=== PATIENT | male | born 1955 | race Caucasian/White ===

== ENCOUNTER 2019-03-12 10:18 | Outpatient (CLI) | payer BC, SELFPAY ==
[2019-03-12 10:53] LABS: Abs Immature Grans 0.03 k/cumm (0.0-0.09); Absolute Basophil Count 0.02 k/cumm (0.0-0.2); Absolute Eosinophil Count 0.09 k/cumm (0.0-0.7); Absolute Lymphocyte Count 2.29 k/cumm (1.2-3.4); Absolute Monocyte Count 0.48 k/cumm (0.11-0.7); Absolute Neutrophil Count 4.35 k/cumm (1.2-6.7); Basophils % 0.3; Eosinophils % 1.2; HCT 41.3 % (40.0-50.0); HGB 14.1 g/dL (13.5-17.5); Immature Grans % 0.4; Lymphocytes % 31.5; Mean Corp. HGB Concentration 34.1 g/dL (32.0-36.0); Mean Corpuscular Hemoglobin 31.5 pg (27.0-33.0); Mean Corpuscular Volume 92.2 fL (80-95); Mean Platelet Volume 9.3 fL (8.0-11.0); Monocytes % 6.6; Platelet Count 272 x1000/uL (130-400); RBC 4.48 m/cumm (4.50-6.00); RBC Distribution Width 12.8 % (11.8-14.1); White Blood Cell Count 7.26 k/cumm (4.4-10.8)
[2019-03-12 12:02] LABS: Vitamin B12 455 pg/mL (193-986)
[2019-03-12 12:14] LABS: C-Reactive Protein 0.35 mg/dL (0.0-0.3)
[2019-03-12 22:41] LABS: Estradiol 28 pg/ml (0-40)
[2019-03-15 10:45] LABS: PSA, Screening 1.9 ng/ml (0-4.5)
[2019-03-15 12:48] LABS: Albumin 59.6 % (55.8-66.1); Comment SEE COMMENTS; Total Protein 7.1 g/dl (6.3-8.2)
== END 2019-03-12 10:38 ==
PROVIDERS: PCP Family Medicine; Visit Provider Family Medicine
DX: Z00.00 Encounter for general adult medical examination without abnormal findings (principal); M13.80 Other specified arthritis, unspecified site; I10 Essential (primary) hypertension; E53.8 Deficiency of other specified B group vitamins; D64.9 Anemia, unspecified; Z12.5 Encounter for screening for malignant neoplasm of prostate
CPT/HCPCS: 36415; 84153; 82607; 82670; 84165; 85025; 86140; 86320

== ENCOUNTER 2019-03-18 01:51 | Outpatient (CLI) | payer BC, SELFPAY ==
--- NOTE | 2019-03-18 13:00 | DI.NM_ITS ---
APPROVED REPORT Exam: Exercise Treadmill Patient Location: Out-Patient Room/Bed: Stress Nurse: Peggy Huff RN Baseline Rhythm: NSR Indications: Chest pain. Pt is a manual machinist. While at work he has been experiencing intermittent chest pains that will sometimes radiate up into his jaw and behind his eyes this is associated with cold s weats. He states the discomfort will last 5 to 10 minutes each time. He also has had chest pains that is waking him up at night, he has been taking antacids at these times and getting up out of the bed for the pain to subside. Pt reports smoking 3/4 pack a day of cigarettes for past 40 years. Medical History Medical History: HTN, Obesity Cardiac Medications: Aspirin. Hyzaar. MVI. Allergies: No known drug allergies Cardiac Risk Factors: HTN, Smoking Exercise History: Indeterminate Stress Test Details Test: Exercise stress testing was performed using a modified [place] protocol. Nuclear Acquisition: Stress Tc-99m/Stress Tc-99m 2 days Rest Isotope: Tc-99m Sestamibi. Dose: 12.1 Date: 03/18/2019 Injection Time: 1145 Stress Isotope: Tc-99m Sestamibi. Dose: 36.0 Date: 03/18/2019 Injection Time: 1430 HR Resting HR: 66 bpm Max Heart Rate (APMHR): 156 bpm Target HR (85% APMHR): 132 bpm Max HR Achieved: 146 bpm % of APMHR: 93 Recovery HR: 88 bpm HR response to stress: Normal HR response to stress BP Resting BP: 140/80 mmHg Max BP: 184/60 mmHg Recovery BP: 158/86 mmHg BP response to stress: Normal blood pressure response to stress. ECG Resting ECG: Sinus Rhythm Stress ECG: Sinus Tachycardia ST Change: No significant ST segment changes. Arrhythmia: None Recovery ECG: Sinus Rhythm Recovery ST Change: No significant ST segment changes Recovery Arrhythmia: None Clinical Reason for Termination: Dyspnea Stress Symptoms: Dyspnea, General Fatigue Highest Stage Achieved: Stage 2: 2.5 mph at 12% grade. Exercise capacity: 6.31 METs Stress ECG Conclusion 1. Patient showed moderate exercise tolerance 2. This represents a maximal effort study 3. EKG portion of study does not demonstrate any inducible ischemia 4. Imaging portion of study does not demonstrate any inducible ischemia 5. This represents a normal stress test. No prior study available for comparison.
== END 2019-03-18 02:11 ==
PROVIDERS: PCP Family Medicine; Visit Provider Family Medicine
DX: R07.89 Other chest pain (principal); I10 Essential (primary) hypertension; F17.210 Nicotine dependence, cigarettes, uncomplicated
CPT/HCPCS: 78452; 93017

== ENCOUNTER 2020-08-25 03:41 | Outpatient (CLI) | payer OTHER, MEDICARE, SELFPAY ==
[2020-08-25 13:22] LABS: Hemoglobin A1C 5.7 % (<5.7)
[2020-08-25 14:11] LABS: ALT 24 U/L (16-63); AST 15 U/L (15-37); Albumin 3.9 g/dL (3.4-5.0); Alkaline Phosphatase 75 U/L (46-116); Anion Gap 10.7 mmol/L (3-11); BUN 16 mg/dL (7-18); Bilirubin, Total 0.4 mg/dL (0.2-1.0); C-Reactive Protein 0.61 mg/dL (0.0-0.3); CO2 25.3 mmol/L (21.0-32.0); CREATININE 1.1 mg/dL (0.70-1.30); Chloride 105 mmol/L (98-107); Glucose 96 mg/dL (74-106); Potassium 3.9 mmol/L (3.5-5.1); Sodium 141 mmol/L (136-145); TSH (W/Ref FT4) 1.07 uIU/mL (0.36-3.74); Total Protein 7.2 g/dL (6.4-8.2)
[2020-08-25 16:21] LABS: ESR 4 mm/hr (<or=20)
[2020-08-25 22:04] LABS: PSA, Screening 1.1 ng/mL (0.0-4.5)
== END 2020-08-25 03:42 | disposition home or self-care (01) ==
PROVIDERS: PCP Family Medicine; Visit Provider Family Medicine
DX: I10 Essential (primary) hypertension (principal); R07.9 Chest pain, unspecified; M13.80 Other specified arthritis, unspecified site; Z12.5 Encounter for screening for malignant neoplasm of prostate; Z13.1 Encounter for screening for diabetes mellitus
CPT/HCPCS: 36415; 80053; 84153; 85652; 83036; 83735; 84443; 86140

== ENCOUNTER 2021-09-06 03:31 | Outpatient (CLI) | payer MEDICARE, SELFPAY ==
[2021-09-06 15:54] LABS: Hemoglobin A1C 5.7 % (<5.7)
[2021-09-06 16:05] LABS: HCT 43.8 % (40.0-50.0); HGB 14.8 g/dL (13.5-17.5); MCH 31.9 pg (27.0-33.0); MCHC 33.8 % (32.0-36.0); MCV 94.4 fL (80-95); MPV 9.7 fL (8.0-11.0); Platelet Count 228 10^3/uL (130-400); RBC 4.64 10^6/uL (4.36-5.78); RDW 12.2 % (11.8-14.1); RDW-SD 42.3 fL; WBC 8.72 10^3/uL (4.4-10.8)
[2021-09-06 16:28] LABS: ESR 3 mm/hr (0-20)
[2021-09-06 16:37] LABS: ALT 22 U/L (16-63); AST 17 U/L (15-37); Alkaline Phosphatase 78 U/L (46-116); Anion Gap 9.5 mmol/L (3-11); BUN 16 mg/dL (7-18); Bilirubin, Total 0.2 mg/dL (0.2-1.0); C-Reactive Protein 0.59 mg/dL (0.0-0.3); CO2 26.5 mmol/L (21.0-32.0); CREATININE 1.1 mg/dL (0.70-1.30); Calcium 8.7 mg/dL (8.5-10.1); Calculated LDL 74 mg/dL (<100); Chloride 105 mmol/L (98-107); Cholesterol 153 mg/dL (<200); Glucose 99 mg/dL (74-106); HDL Cholesterol 31 mg/dL (40-60); Potassium 3.9 mmol/L (3.5-5.1); Sodium 141 mmol/L (136-145); Total Protein 7.2 g/dL (6.4-8.2); Triglyceride 240 mg/dL (<150)
[2021-09-07 21:11] LABS: PSA, Screening 1.3 ng/mL (0.0-4.5)
== END 2021-09-06 03:32 | disposition home or self-care (01) ==
PROVIDERS: PCP Family Medicine; Visit Provider Family Medicine
DX: I10 Essential (primary) hypertension (principal); R73.03 Prediabetes; Z85.46 Personal history of malignant neoplasm of prostate; D64.9 Anemia, unspecified; R79.82 Elevated C-reactive protein (CRP); M79.10 Myalgia, unspecified site; Z12.5 Encounter for screening for malignant neoplasm of prostate
CPT/HCPCS: 36415; 80053; 80061; 84153; 85027; 85652; 83036; 86140

== ENCOUNTER → 2021-10-16 00:51 | Outpatient (CLI) | payer MEDICARE, SELFPAY ==
--- NOTE | 2021-10-16 08:00 | DI.US_ITS ---
Exam(s) US AAA SCREENING EXAM: US AAA SCREENING CLINICAL HISTORY: HTN, I10; FORMER SMOKER, QUIT > 1 YR, Z87.891 COMPARISON: US RIGHT EXTREMITY ULTRASOUND {[id number]} from 03/09/2015 FINDINGS: There is no evidence of abdominal aortic aneurysm maximum diameter of the abdominal aorta is 2.5 cent imeters, proximally. There is normal tapering distally. Both common iliac arteries are minimally pr ominent, measuring approximately 1.6 cm bilaterally. IMPRESSION: No evidence of abdominal aortic aneurysm. Mild arterial megaly of both partially visualized common iliac arteries. DATA REPOSITORY:
--- NOTE | 2021-10-16 14:00 | DI.US_ITS ---
APPROVED REPORT Exam: Exercise Treadmill Patient Location: Out-Patient Room/Bed: Stress Nurse: Sherri Graham RN Ordering Provider:FRANCISCO JAVIER RIZZO, Contact Number: [phone] BMI: 35.93 Baseline Rhythm: Sinus Rhythm Indications: CHEST PAIN, HYPERTENSION, FORMER SMOKER, QUIT > 1 YR Medical History Medical History: Anxiety, HTN, NIKOLE, Tobacco abuse Cardiac Medications: Losartan, Atenolol, Aspirin Allergies: No known drug allergies Cardiac Risk Factors: HTN, Smoking (current) Previous Cardiac Procedures: None Pretest Chest Pain Characteristics: None Exercise History: Sedentary Physical Disabilities: Arthritis in knee Lung Sounds: Diminished Heart Sounds: Regular Stress Test Details Test: Exercise stress testing was performed using a [place] protocol. Rest Stress HR Resting HR Supine: 65 bpm Max Heart Rate (APMHR): 153 bpm Resting HR Standin bpm Target HR (85% APMHR): 130 bpm Max HR Achieved: 138 bpm % of APMHR: 90 Recovery HR: 86 bpm HR response to stress: Normal HR response to stress Comment: Atenolol not held for test BP Resting BP Supine: 138/74 mmHg Resting BP Standin/74 mmHg Max BP: 194/82 mmHg Recovery BP: 148/60 mmHg BP response to stress: Normal blood pressure response to stress. ECG Resting ECG: Sinus Rhythm Ectopy: None Stress ECG: Sinus Tachycardia ST Change: No significant ST segment changes noted Arrhythmia: None Recovery ECG: Sinus Rhythm Recovery ST Change: Horizontal ST depression Lead(s): inferior leads Recovery ST Deviation: 1 mm Recovery Arrhythmia: None Clinical Reason for Termination: Fatigue, knee pain Stress Symptoms: Dyspnea Exercise duration: 6 min34 sec Highest Stage Reached: Stage 3: 3.4 mph at 14% grade. Exercise capacity: 7.91 METs [place] Treadmill Score: 6.5 Rate Pressure Product: [id number] Stress ECG Conclusion 1. Resting electrocardiogram was within normal limits 2. Patient exercised on the [place] protocol and completed a workload of 7.91 METS, stopping due to dys pnea and knee pain 3. Normal heart rate and blood pressure response to exercise. The patient achieved 90% of predicted heart rate for age 4. At peak exercise there was no electrocardiographic evidence of myocardial ischemia 5. There were no significant dysrhythmias 6. See stress echo report Mag[place] Treadmill Score is 6.5 which is Low risk. Stress Test Summary STAGE Time (mins) Speed (mph) Grade (%) HR BP SYMPTOMS METS Supine 65 138/74 Standing 67 142/74 1 3 1.7 10 102 142/88 4.6 2 6 2.5 12 128 7 1 min recovery 121 194/82 3 min recovery 94 178/68 6 min recovery 86 148/60 MPI Conclusion This is a stress echocardiogram The resting echocardiogram showed normal left ventricular function, EF approximately 60% Post exercise echocardiogram showed improved contractility of all segments, EF talib to greater than o r equal to 70% Left ventricular chamber size decreased There was no echocardiographic evidence of myocardial ischemia
== END ==
PROVIDERS: PCP Family Medicine; Visit Provider Family Medicine
DX: R07.89 Other chest pain (principal); Z87.891 Personal history of nicotine dependence; I10 Essential (primary) hypertension
CPT/HCPCS: 76706; 93306; 93350; 93017

== ENCOUNTER 2022-09-11 01:59 | Outpatient (CLI) | payer MEDICARE, SELFPAY ==
[2022-09-11 10:45] LABS: Hemoglobin A1C 5.6 % (<5.7)
[2022-09-11 11:31] LABS: ALT 23 U/L (16-63); AST 13 U/L (15-37); Albumin 3.9 g/dL (3.4-5.0); Alkaline Phosphatase 72 U/L (46-116); Anion Gap 5.9 mmol/L (3-11); BUN 21 mg/dL (7-18); Bilirubin, Total 0.3 mg/dL (0.2-1.0); CO2 29.1 mmol/L (21.0-32.0); CREATININE 1.1 mg/dL (0.70-1.30); Calcium 9.3 mg/dL (8.5-10.1); Chloride 106 mmol/L (98-107); Estimated GFR 73.12 (mL/min/1.73m2); Glucose 102 mg/dL (74-106); Potassium 3.9 mmol/L (3.5-5.1); Sodium 141 mmol/L (136-145); Total Protein 7.5 g/dL (6.4-8.2)
== END 2022-09-11 02:00 | disposition home or self-care (01) ==
LOC: LBO 01:59
PROVIDERS: PCP Family Medicine; Visit Provider Family Medicine
DX: I10 Essential (primary) hypertension (principal); R73.03 Prediabetes
CPT/HCPCS: 36415; 80053; 83036

== ENCOUNTER 2022-10-02 01:27 | Outpatient (CLI) | payer MEDICARE, SELFPAY ==
--- NOTE | 2022-10-02 08:00 | DI.US_ITS ---
Exam(s) US SOFT TISSUE HEAD OR NECK EXAM: US SOFT TISSUE HEAD OR NECK CLINICAL HISTORY: LT NECK PAIN, M54.2, EVAL FOR LYMPHADENOPATHY. TECHNIQUE: Ultrasound was performed using standard protocol. COMPARISON: No exams were available for comparison FINDINGS: Sonographic assessment utilizing grayscale and color Doppler imaging was performed and targeted to th e area of clinical concern. There are cervical lymph nodes seen bilaterally. The largest on the left measures 1.6 x 0.7 x 0.8 cm . The largest on the right measures 1.1 x 0.7 x 1.1 cm. The lymph nodes appear unremarkable sonogra phically. No suspicious cystic or solid neck masses are seen. IMPRESSION: 1. No suspicious cystic or solid neck masses are seen sonographically. 2. Sonographically unremarkable bilateral lymph nodes. The largest is on the left and measures 1.6 x 0.7 x 0.8 cm. DATA REPOSITORY:
--- NOTE | 2022-10-02 08:30 | DI.US_ITS ---
Exam(s) US CAROTID EXAM: US CAROTID CLINICAL HISTORY: LT NECK PAIN, M54.2. TECHNIQUE: Ultrasound carotids performed using grayscale, color-flow, and spectral Doppler imaging. COMPARISON: No exams were available for comparison FINDINGS: RIGHT CAROTID ARTERY: Plaque: Mild calcific plaque in the carotid bulb and proximal right ICA. Velocity elevation: None. LEFT CAROTID ARTERY: Plaque: Calcific plaque is seen in the carotid bulb, common carotid artery and proximal ICA. Velocity elevation: None. VERTEBRAL ARTERIES: Antegrade flow. Measurements: R Bulb: 64.7cm/s PS / 16.8cm/s ED R CCA: 76.3cm/s PS / 21.9cm/s ED R ECA: 107.7cm/s PS / 17cm/s ED R ICA Prox: 67.5cm/s PS / 19.6cm/s ED R ICA Mid: 72.9cm/s PS / 28cm/s ED R ICA Distal: 70cm/s PS /27cm/s ED R Vert: 53.6cm/s PS / 15cm/s ED R SVR: 1 R DVR: 1.3 L Bulb: 62.5cm/s PS / 17.5cm/s ED L CCA: 82.3cm/s PS / 22.9cm/s ED L ECA: 94.1cm/s PS / 19.3cm/s ED L ICA Prox: 67.9cm/s PS / 23.2cm/s ED L ICA Mid: 67.5cm/s PS / 26.2cm/s ED L ICA Distal: 68.9cm/s PS / 24.8cm/s ED L Vert: 52.7cm/s PS / 21.6cm/s ED L SVR: 0.8 L DVR: 1.1 IMPRESSION: 1. No evidence for hemodynamically significant carotid stenosis. 2. Mild atherosclerosis. Criteria for Carotid Stenosis: Normal: ICA PSV <125 cm/s no plaque or intimal thickening is visible. <50% stenosis: ICA PSV <125 cm/s and plaque or intimal thickening is visible. 50-69% stenosis: ICA PSV is 125-250 cm/s and plaque is visible. >70% stenosis to near occlusion: ICA PSV >250 cm/s with visible plaque and luminal narrowing. DATA REPOSITORY:
== END 2022-10-02 01:47 ==
LOC: DI 01:41
PROVIDERS: PCP Family Medicine; Visit Provider Family Medicine
DX: M54.2 Cervicalgia (principal)
CPT/HCPCS: 76536; 93880

== ENCOUNTER 2022-10-14 03:22 | Outpatient (CLI) | payer MEDICARE, SELFPAY ==
--- NOTE | 2022-10-14 | DI.CTLCSR_ITS ---
Exam(s) CT CHEST LUNG CANCER SCREEN EXAM: CT CHEST LUNG CANCER SCREEN CLINICAL HISTORY: SCREENING FOR LUNG CA, FORMER SMOKER, Z87.891 TECHNIQUE: Imaging Protocol: Axial computed tomography images with coronal and sagittal reformatted images were created and reviewed COMPARISON: No exams were available for comparison FINDINGS: Tracheobronchial tree: Patent where visualized. Pulmonary parenchyma: Moderate centrilobular emphysema. No focal consolidating infiltrates. Lung Nodules: There is a 3.7 mm nodule in the periphery of the right lower lobe. There is a 3 mm nod ule in the periphery of the right lower lobe. There is an 8 mm nodule in the periphery of the left u pper lobe. There is a 6 mm nodule in the periphery of the left upper lobe. Mediastinum and Jessie: No dominant adenopathy or fluid collection. The esophagus is unremarkable. Thyroid gland: Unremarkable. Lymph nodes: No significant thoracic adenopathy. Pleura: No effusion or pneumothorax. Heart: The heart is not dilated. Moderate coronary artery calcification and/or stents. No pericardia l effusion. Aorta: Thoracic aorta non-dilated.Mild atherosclerosis. Upper abdomen: Unremarkable. Soft Tissues: Unremarkable. Bones: Within normal limits. IMPRESSION: Several pulmonary nodules. The largest measures 8 mm and is located in the left upper lobe. Lung RADS Cat 4A - Suspicious: Findings for which additional diagnostic testing and/or tissue samplin g recommended Lung-RADS 1.0 CATEGORIES: Category 0 - Prior chest CT exam(s) being located for comparison. Category 1 - Annual screening in 12 months. No nodules or definitely benign nodules. Category 2 - Annual screening in 12 months. Benign appearance. Nodules with low likelihood of becomin g active cancer. Category 3 - 6-month follow-up. Probably benign. Short-term follow-up suggested. Nodules with low lik elihood of becoming active cancer. Category 4A - 3-month follow-up and CT/PET if >8 mm in size. Suspicious finding. Findings which requi re additional testing. Category 4B - Findings which require additional testing and tissue sampling. Suspicious finding. Category 4X - Category 3 or 4 nodules with additional features or imaging findings that increases the suspicion of malignancy. Modifier S- Potentially clinically significant finding. (Non lung cancer) RADIATION DOSE DELIVERED: 81.55mGy.cm Total DLP 81.55mGy.cmTotal DLP DATA REPOSITORY: All CT scans at this facility are submitted to the National Radiology Data Registry (NRDR) Dose Index Registry (DIR) with the [employer] (ACR). RADIATION OPTIMIZATION: All CT scans at this facility use at least one of these dose optimization te chniques: automated exposure control; mA and/or kV adjustment per patient size (includes targeted exa ms where dose is matched to clinical indication); or iterative reconstruction.
== END 2022-10-14 03:42 ==
PROVIDERS: PCP Family Medicine; Visit Provider Family Medicine
DX: Z87.891 Personal history of nicotine dependence (principal)
CPT/HCPCS: 71271

== ENCOUNTER 2022-11-07 01:37 | Outpatient (CLI) | payer MEDICARE, SELFPAY ==
--- NOTE | 2022-11-07 09:00 | ETT_ITS ---
APPROVED REPORT Exam: Exercise Treadmill Patient Location: Out-Patient Room/Bed: Stress Nurse: Ellen Luz RN Ordering Provider:FRANCISCO JAVIER RIZZO, Contact Number: [phone] BMI: 36.07 Baseline Rhythm: Sinus Rhythm Comment: T wave abnormalities/inversions in aVL, V2, V3, V4 Indications: Chest pain, intermittent with radiation into neck Medical History Medical History: HTN, NIKOLE, pre DM, inflammatory arthritis Cardiac Medications: Nitro, HCTZ, losartan, atenolol, aspirin Allergies: methotrexate Cardiac Risk Factors: +family history, HTN, pre DM, former smoker, obesity Previous Cardiac Procedures: None Pretest Chest Pain Characteristics: None Exercise History: Sedentary Physical Disabilities: arthritis (knees) Lung Sounds: Clear, diminished Heart Sounds: s1/s2, regular Stress Test Details Test: Exercise stress testing was performed using a [place] protocol. Rest Stress HR Resting HR Supine: 75 bpm Max Heart Rate (APMHR): 152 bpm Resting HR Standin bpm Target HR (85% APMHR): 129 bpm Max HR Achieved: 146 bpm % of APMHR: 96 Recovery HR: 96 bpm HR response to stress: Normal HR response to stress BP Resting BP Supine: 144/88 mmHg Resting BP Standin/92 mmHg Max BP: 208/90 mmHg Recovery BP: 158/70 mmHg BP response to stress: Normal blood pressure response to stress. ECG Resting ECG: Sinus Rhythm Ectopy: None Comment: T wave abnormalities/inversions in aVL and anterior leads Stress ECG: Sinus Tachycardia ST Change: No significant ST segment changes noted Arrhythmia: None Comment: T wave abnormalities/inversions in aVL and anterior leads Recovery ECG: Sinus Rhythm Recovery ST Change: No significant ST segment changes noted Comment: T wave abnormalities/inversions in aVL and anterior leads Clinical Reason for Termination: Fatigue, Target HR Achieved Stress Symptoms: Dyspnea, General Fatigue, Leg Fatigue Exercise duration: 4 min54 sec Highest Stage Reached: Stage 2: 2.5 mph at 12% grade. Exercise capacity: 6.9 METs Angina Score: None Magana Treadmill Score: 4.6 Rate Pressure Product: [id number] Stress ECG Conclusion 1. Resting electrocardiogram showed an incomplete right bundle branch block 2. Patient exercised on the [place] protocol and completed a workload of 6.9 METS 3. Normal heart rate and blood pressure response to exercise. Patient achieved 97% of predicted hear t rate for age 4. There was no electrocardiographic evidence of myocardial ischemia 5. There were no significant dysrhythmias Mag[place] Treadmill Score is 4.6 which is Moderate risk. Stress Test Summary STAGE Time (mins) Speed (mph) Grade (%) HR BP SpO2 SYMPTOMS METS Supine 75 144/88 Standing 79 146/92 1 3 1.7 10 118 152/80 4.5 2 6 2.5 12 141 7 1 min recovery 132 208/90 3 min recovery 99 198/62 6 min recovery 96 158/70
== END 2022-11-07 01:57 ==
LOC: DI 01:37
PROVIDERS: PCP Family Medicine; Visit Provider Family Medicine
DX: R07.9 Chest pain, unspecified (principal); I45.10 Unspecified right bundle-branch block
CPT/HCPCS: 93016; 93018; 93017

== ENCOUNTER 2023-01-13 02:50 | Outpatient (CLI) | payer MEDICARE, SELFPAY ==
[2023-01-13] MEDS: Albuterol HFA 18 GM 200 PUFF INH IH (09:17)
[2023-01-13] MEDS: Inhaler, Assist Device 1 EACH MC (09:18)
--- NOTE | 2023-01-13 16:13 | W.PFT ---
Date of service: 01/13/23 Time of Service: 07:58 Pulmonary Function Test Result Indications: Lung nodules Interpretation Spirometry: There is moderate airflow limitation.No bronchodilator response. Lung Volumes: There is air trapping Diffusion Capacity: Decreased diffusion Airway Pressure: Normal airways resistance. Clinical Correlation therefore is recommended.
== END 2023-01-13 02:51 | disposition home or self-care (01) ==
LOC: RT 02:50
PROVIDERS: PCP Family Medicine; Visit Provider Student in an Organized Health Care Education/Training Program
DX: R91.8 Other nonspecific abnormal finding of lung field (principal); F17.210 Nicotine dependence, cigarettes, uncomplicated
CPT/HCPCS: 94060; 94726; 94729

== ENCOUNTER → 2023-08-19 11:01 | Outpatient (BNVA) | payer MEDICARE, SELFPAY | PROVIDERS: PCP Family Medicine; Referring Provider Family Medicine; Visit Provider Physician Assistant Surgical | DX: J44.9 Chronic obstructive pulmonary disease, unspecified (principal); R91.8 Other nonspecific abnormal finding of lung field; F17.210 Nicotine dependence, cigarettes, uncomplicated; G47.33 Obstructive sleep apnea (adult) (pediatric) | CPT/HCPCS: 99214 ==

== ENCOUNTER → 2023-10-17 03:40 | Outpatient (CLI) | payer MEDICARE, SELFPAY ==
--- NOTE | 2023-10-17 07:00 | DI.CTLCSR_ITS ---
Exam(s) CT CHEST LUNG CANCER SCREEN EXAM: CT CHEST LUNG CANCER SCREEN CLINICAL HISTORY: Screening for lung cancer,current smoker, f17.210. TECHNIQUE: Imaging Protocol: Low Dose Technique CONTRAST MATERIAL: None COMPARISON: CT CT CHEST LUNG CANCER SCREEN from 10/14/2022 FINDINGS: CHEST: LUNGS: There are emphysematous changes in both lung palacios again noted. Small peripheral nodular inf iltrate in the right upper lobe is unchanged from 10/14/2022. Eighty small subpleural nodular densit y measuring 7 millimeters in the right middle lobe is unchanged. In the opposite-left lung there is a 6 millimeter nodule in the lateral aspect of the left upper lobe which is unchanged. Below this le erinn there is an unchanged 8 millimeter nodule in the left upper lobe just above the lingular segment. In the left lower lobe lateral basal segment there is an unchanged 4 millimeter nodule. There are no new nodules, infiltrates or pleural effusions. MEDIASTINUM: There is no obvious hilar nor mediastinal adenopathy. CARDIAC: Heart size is normal. Slight thickening of the pericardium is unchanged. Thoracic aorta no rmal diameter. OTHER: No adrenal masses. OSSEOUS: No significant osseous lesions.No fractures.. IMPRESSION: 1. Compared to the chest CT scan of 10/14/2022 the previously described bilateral lung nodules remain stable in size and number, with the largest again noted to be in the peripheral aspect of the left u pper lobe just above the lingular segment and measuring 8 mm, unchanged. 2. Slight thickening of the pericardium is unchanged. 3. Lung RADS Cat 3 - Probably Benign: Probably benign finding(s) - short term follow-up suggested; in clude nodules with a low likelihood of becoming a clinically active cancer. Lung-RADS 1.0 CATEGORIES: Category 0 - Prior chest CT exam(s) being located for comparison. Category 1 - Annual screening in 12 months. No nodules or definitely benign nodules. Category 2 - Annual screening in 12 months. Benign appearance. Nodules with low likelihood of becomin g active cancer. Category 3 - 6-month follow-up. Probably benign. Short-term follow-up suggested. Nodules with low lik elihood of becoming active cancer. Category 4A - 3-month follow-up and CT/PET if >8 mm in size. Suspicious finding. Findings which requi re additional testing. Category 4B - Findings which require additional testing and tissue sampling. Category 4X - Category 3 or 4 nodules with additional features or imaging findings that increases the suspicion of malignancy. Modifier S- Potentially clinically significant findings (non lung cancer) RADIATION DOSE DELIVERED: 93.78mGy.cm Total DLP DATA REPOSITORY: All CT scans at this facility are submitted to the National Radiology Data Registry (NRDR) Dose Index Registry (DIR) with the [employer] (ACR). RADIATION OPTIMIZATION: All CT scans at this facility use at least one of these dose optimization te chniques: automated exposure control; mA and/or kV adjustment per patient size (includes targeted exa ms where dose is matched to clinical indication); or iterative reconstruction.
== END ==
PROVIDERS: PCP Family Medicine; Visit Provider Physician Assistant Surgical
DX: F17.210 Nicotine dependence, cigarettes, uncomplicated (principal); Z12.2 Encounter for screening for malignant neoplasm of respiratory organs; R91.8 Other nonspecific abnormal finding of lung field
CPT/HCPCS: 71271

== ENCOUNTER 2023-10-30 05:17 | Outpatient (CLI) | payer MEDICARE, SELFPAY ==
[2023-10-30 12:26] LABS: ESR 9 mm/hr (0-20)
[2023-10-30 12:27] LABS: HCT 43.3 % (40.0-50.0); HGB 14.6 g/dL (13.5-17.5); MCH 31.6 pg (27.0-33.0); MCHC 33.7 % (32.0-36.0); MCV 94 fL (80-95); MPV 9.4 fL (8.0-11.0); Platelet Count 283 10^3/uL (130-400); RBC 4.62 10^6/uL (4.36-5.78); RDW 11.9 % (11.8-14.1); RDW-SD 41.2 fL; WBC 7.45 10^3/uL (4.4-10.8)
[2023-10-30 12:57] LABS: ALT 21 U/L (16-63); AST 14 U/L (15-37); Albumin 3.7 g/dL (3.4-5.0); Alkaline Phosphatase 76 U/L (46-116); Anion Gap 9.5 mmol/L (3-11); BUN 17 mg/dL (7-18); Bilirubin, Total 0.3 mg/dL (0.2-1.0); C-Reactive Protein 0.55 mg/dL (<or=0.5); CO2 27.5 mmol/L (21.0-32.0); Calcium 8.8 mg/dL (8.5-10.1); Chloride 103 mmol/L (98-107); Estimated GFR 81.47 (mL/min/1.73m2); Glucose 115 mg/dL (74-106); Potassium 3.7 mmol/L (3.5-5.1); Sodium 140 mmol/L (136-145); Total Protein 7.6 g/dL (6.4-8.2)
[2023-10-30 21:50] LABS: Rheumatoid Factor <8.6 IU/mL (<12.0)
[2023-10-31 14:17] LABS: Albumin 55.4 % (55.8-66.1); Albumin g/dL 3.9 g/dL (3.6-5.2); Comment (See Note); Monoclonal Spike 6.2 % (None Seen); Monoclonal Spike g/dL 0.4 g/dL (None Seen); Total Protein 7.1 g/dL (6.3-8.2)
[2023-10-31 15:18] LABS: ANA Interpretation Negative (Negative)
== END 2023-10-30 05:18 | disposition home or self-care (01) ==
LOC: LBO 05:17
PROVIDERS: PCP Family Medicine; Visit Provider Family Medicine
DX: M25.59 Pain in other specified joint (principal)
CPT/HCPCS: 36415; 80053; 85027; 85652; 84165; 86038; 86140; 86431

== ENCOUNTER → 2024-02-18 09:39 | Outpatient (BNVA) | payer MEDICARE, SELFPAY | PROVIDERS: PCP Family Medicine; Referring Provider Family Medicine; Visit Provider Physician Assistant Surgical | DX: J44.9 Chronic obstructive pulmonary disease, unspecified (principal); R91.8 Other nonspecific abnormal finding of lung field; G47.33 Obstructive sleep apnea (adult) (pediatric); F17.210 Nicotine dependence, cigarettes, uncomplicated | CPT/HCPCS: 99214 ==

== ENCOUNTER → 2024-08-16 09:32 | Outpatient (BNVA) | payer MEDICARE, SELFPAY | PROVIDERS: PCP Family Medicine; Referring Provider Family Medicine; Visit Provider Physician Assistant Surgical | DX: J44.9 Chronic obstructive pulmonary disease, unspecified (principal); R91.8 Other nonspecific abnormal finding of lung field; G47.33 Obstructive sleep apnea (adult) (pediatric); F17.210 Nicotine dependence, cigarettes, uncomplicated | CPT/HCPCS: 99214; G0296 ==

== ENCOUNTER 2024-10-18 00:51 | Outpatient (CLI) | payer MEDICARE, SELFPAY ==
--- NOTE | 2024-10-18 06:45 | DI.CTLCSR_ITS ---
Exam(s) CT CHEST LUNG CANCER SCREEN EXAM: CT CHEST LUNG CANCER SCREEN CLINICAL HISTORY: Screening for lung cancer, CIGARETTE SMOKER, F17.210. TECHNIQUE: Imaging Protocol: Low Dose Technique CONTRAST MATERIAL: None COMPARISON: CT CT CHEST LUNG CANCER SCREEN from 10/17/2023 FINDINGS: CHEST: LUNGS: COPD emphysematous changes in both lung palacios are again noted. Small peripheral nodular infi ltrate in the right lung is unchanged. No new right lung nodules.. In the opposite-left lung there are 4 nodules again noted. The largest is again noted to be in the left upper lobe just above the li ngula and measures 7-8 mm, unchanged. Other smaller nodular densities in the left lung remain unchan ged. No new nodules nor infiltrates. No pleural effusions. No new findings in the trachea and main stem bronchi. MEDIASTINUM: There is no obvious hilar nor mediastinal adenopathy. CARDIAC: Heart size normal. Minimal thickening of the pericardium is unchanged.Caliber of the thorac ic aorta is within normal limits. OTHER: OSSEOUS: No significant osseous lesions.. IMPRESSION: 1. Continue stable size and number of predominately left lung nodules, unchanged from October 2023. 2. No intrathoracic adenopathy nor pleural effusions evident 3. Lung RADS Cat 2 - Benign Appearance / Behavior: Nodules with a very low likelihood of becoming a c linically active cancer due to size or lack of growth Lung-RADS 1.0 CATEGORIES: Category 0 - Prior chest CT exam(s) being located for comparison. Category 1 - Annual screening in 12 months. No nodules or definitely benign nodules. Category 2 - Annual screening in 12 months. Benign appearance. Nodules with low likelihood of becomin g active cancer. Category 3 - 6-month follow-up. Probably benign. Short-term follow-up suggested. Nodules with low lik elihood of becoming active cancer. Category 4A - 3-month follow-up and CT/PET if >8 mm in size. Suspicious finding. Findings which requi re additional testing. Category 4B - Findings which require additional testing and tissue sampling. Category 4X - Category 3 or 4 nodules with additional features or imaging findings that increases the suspicion of malignancy. Modifier S- Potentially clinically significant findings (non lung cancer) RADIATION DOSE DELIVERED: 99.81mGy.cm Total DLP DATA REPOSITORY: All CT scans at this facility are submitted to the National Radiology Data Registry (NRDR) Dose Index Registry (DIR) with the [employer] (ACR). RADIATION OPTIMIZATION: All CT scans at this facility use at least one of these dose optimization te chniques: automated exposure control; mA and/or kV adjustment per patient size (includes targeted exa ms where dose is matched to clinical indication); or iterative reconstruction.
== END 2024-10-18 01:11 ==
LOC: DI 00:52
PROVIDERS: PCP Family Medicine; Visit Provider Physician Assistant Surgical
DX: F17.210 Nicotine dependence, cigarettes, uncomplicated (principal); Z12.2 Encounter for screening for malignant neoplasm of respiratory organs; R91.8 Other nonspecific abnormal finding of lung field
CPT/HCPCS: 71271

== ENCOUNTER 2025-02-11 14:20 | Outpatient (CLI) | payer MEDICARE, SELFPAY ==
[2025-02-11 08:04] LABS: Hemoglobin A1C 5.6 % (<5.7)
[2025-02-11 08:24] LABS: ALT 29 U/L (16-63); AST 22 U/L (15-37); Albumin 3.8 g/dL (3.4-5.0); Alkaline Phosphatase 73 U/L (46-116); Anion Gap 5.8 mmol/L (3-11); BUN 13 mg/dL (7-18); Bilirubin, Total 0.5 mg/dL (0.2-1.0); CO2 31.2 mmol/L (21.0-32.0); Calcium 8.7 mg/dL (8.5-10.1); Calculated LDL 44 mg/dL (<100); Chloride 105 mmol/L (98-107); Cholesterol 108 mg/dL (<200); Estimated GFR 80.97 (mL/min/1.73m2); Glucose 118 mg/dL (74-106); HDL Cholesterol 34 mg/dL (>or=40); Potassium 4.1 mmol/L (3.5-5.1); Sodium 142 mmol/L (136-145); Total Protein 7.7 g/dL (6.4-8.2); Triglyceride 152 mg/dL (<150)
== END 2025-02-11 14:21 | disposition home or self-care (01) ==
LOC: LBO 14:21
PROVIDERS: PCP Family Medicine; Visit Provider Family Medicine
DX: R73.03 Prediabetes (principal); I10 Essential (primary) hypertension; E78.5 Hyperlipidemia, unspecified
CPT/HCPCS: 36415; 80053; 80061; 83036

== ENCOUNTER → 2025-03-31 12:38 | Outpatient (BNVA) | payer MEDICARE, SELFPAY | PROVIDERS: PCP Family Medicine; Referring Provider Family Medicine; Visit Provider Physician Assistant Surgical | DX: G47.33 Obstructive sleep apnea (adult) (pediatric) (principal); J44.9 Chronic obstructive pulmonary disease, unspecified; J18.9 Pneumonia, unspecified organism; J98.4 Other disorders of lung; R91.8 Other nonspecific abnormal finding of lung field; J96.01 Acute respiratory failure with hypoxia; Z87.891 Personal history of nicotine dependence | CPT/HCPCS: 99214 ==

== ENCOUNTER → 2025-05-19 00:20 | Outpatient (CLI) | payer MEDICARE, SELFPAY ==
--- NOTE | 2025-05-19 06:15 | DI.CT_ITS ---
Exam(s) CT CHEST WO EXAM: CT CHEST WO CLINICAL HISTORY: f/u cavitary pneumonia,j18.9,j98.4. TECHNIQUE: Multi planar reconstructions were performed. CONTRAST MATERIAL: None COMPARISON: CT CT CHEST LUNG CANCER SCREEN from 10/18/2024 FINDINGS: CHEST: LUNGS: Advanced COPD emphysematous changes are again noted in both lung palacios. Bolus changes are again most prominent in the superior segment of the right lower lobe and adjacent posterior segment of the right upper lobe, unchanged and not containing fluid levels. The previously described left upper lobe lung nodules are unchanged in size, the largest again noted to measure 7-8 mm.. Another smaller noncalcified nodule measuring 5-6 mm higher up in the lateral aspect of the left upper lobe is also unchanged as are few other small left lung nodules. There are no new nodules on either side and there are no pleural effusions. MEDIASTINUM: There is no prominent hilar nor mediastinal adenopathy. A few small subcarinal lymph nodes are again noted. Visualized thyroid unremarkable.No obvious axillary adenopathy CARDIAC: Heart size is normal. There is no significant pericardial effusion.Caliber of the thoracic aorta is within normal limits. Coronary artery calcifications again noted. VISUALIZED UPPER ABDOMEN:No adrenal masses. No ascites. OSSEOUS: No significant osseous lesions.No fractures.. IMPRESSION: 1. Continued stable appearance of size and number of predominately left lung nodules, unchanged from October 2023 and 10/18/2024. 2. No new significant intrathoracic adenopathy and there are no pleural effusions. Recommend follow-up CT scan in 1 year, earlier if clinically indicated RADIATION DOSE DELIVERED: 548.55mGy.cm Total DLP DATA REPOSITORY: All CT scans at this facility are submitted to the National Radiology Data Registry (NRDR) Dose Index Registry (DIR) with the [employer] (ACR). RADIATION OPTIMIZATION: All CT scans at this facility use at least one of these dose optimization techniques: automated exposure control; mA and/or kV adjustment per patient size (includes targeted exams where dose is matched to clinical indication); or iterative reconstruction.
== END ==
PROVIDERS: PCP Family Medicine; Visit Provider Physician Assistant Surgical
DX: J18.9 Pneumonia, unspecified organism (principal); J98.4 Other disorders of lung
CPT/HCPCS: 71250